=== PATIENT | male | born 1945 | race Hispanic/Latino ===

== ENCOUNTER 2021-04-23 13:05 | Outpatient (CLI) | payer MEDICARE ==
--- NOTE | 2021-04-23 15:28 | Magnetic Resonance Report ---
MRI BRAIN 04/23/2021 INDICATION / CLINICAL INFORMATION: R42.0 please call report [phone] Dr. Liyah WATSON. Dizziness. TECHNIQUE: Multiplanar, multisequence MR images of the brain were obtained. COMPARISON: None available. FINDINGS: BRAIN / INTRACRANIAL CONTENTS: Unenhanced MR images of the brain demonstrate no evidence of acute abn ormality. Ventricles and sulci are prominent in size, consistent with normal age-related atrophic change. Extensive chronic white matter T2 weighted hyperintensity is present throughout the periventricular a nd deep white matter of cerebral hemispheres, consistent with chronic small vessel ischemic change. There is no evidence of acute ischemic injury, hemorrhage, or mass. There are no abnormal extra-axial fluid collections. EXTRACRANIAL: Unremarkable CRANIOCERVICAL JUNCTION: No significant abnormality. VASCULAR FLOW-VOIDS: No significant abnormality. IMPRESSION: No acute abnormality. Chronic and age-related changes. Signer Name: Salvador Courtney MD Signed: 04/23/2021 3:23 PM Workstation Name: [id number]
== END 2021-04-23 13:06 | disposition home or self-care (01) ==
LOC: MRI 13:05
PROVIDERS: ATTEND Internal Medicine
DX: R42 Dizziness and giddiness (principal)
CPT/HCPCS: 70551